=== PATIENT | female | born 1995 | race Caucasian/White ===

== ENCOUNTER 2019-09-12 12:31 | Inpatient (IN) | payer BC ==
[~2019-09-12 12:31] MED LIST: Lidocaine 1.5% with EPINEPHrine 1:200,000 5 ML Amp ONE
[2019-09-12] MEDS ORDERED: Sodium Chloride 0.9% 10 ML Syringe FLUSH PRN (12:57)
[2019-09-12] MEDS ORDERED: Ondansetron 4 MG/2 ML SDV IVPUSH PRN (12:57)
[2019-09-12] MEDS ORDERED: Oxytocin/Lactated Ringers 10 UNIT/1,000 ML BAG IV SCH (13:00)
--- NOTE | 2019-09-12 13:59 | PCM.LDHP ---
L&D History of Present Illness - General Date of Service: 09/12/19 Admit Problem/Dx: Patient Status Order with Admit Dx/Problem 09/12/19 12:41 Patient Status [ADT] Routine Admission Diagnosis/Problem Admission Diagnosis/Problem Source of Information: Patient History Limitations: Reports: No Limitations - History of Present Illness Introduction:: Patient is a 24 y/o at 40 3/7 wks who presents with SROM. Believes this occurred at about 0200 this AM. Contractions started around 0600 this AM. Rates contractions as an 8/10 currently. 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 (Approximate): - Infectious Disease History Infectious Disease History: Reports: Chicken Pox - Past Surgical History Musculoskeletal Surgical History: Reports: Shoulder Surgery (left) Social & Family History - Family History Family Medical History: Noncontributory - Tobacco Use Smoking Status *Q: Never Smoker Second Hand Smoke Exposure: No - Alcohol Use Alcohol Use History: No - Recreational Drug Use Recreational Drug Use: No H&P Review of Systems - Review of Systems: Review Of Systems: See Below General: Reports: No Symptoms Pulmonary: Reports: No Symptoms Cardiovascular: Reports: No Symptoms Gastrointestinal: Reports: Abdominal Pain (contractions ) Genitourinary: Reports: No Symptoms Musculoskeletal: Reports: No Symptoms Psychiatric: Reports: No Symptoms Neurological: Reports: No Symptoms L&D Exam - Exam Exam: See Below - Vital Signs Vital Signs: Last Vital Signs Temp 37.1 C 09/12/19 12:41 Pulse Resp 14 09/12/19 12:41 BP 133/78 09/12/19 12:41 Pulse Ox 100 09/12/19 12:41 Weight: 88.768 kg - OB Specific Contraction Intensity: Moderate Movement: Active Heart Tones: Present Heart Tones per Min: 150 Heart Rate (FHR) Variability: Moderate (6-25 bmp) Presentation: Vertex - Steven Score Steven Score Cervix Position: Midposition Steven Score Consistency: Soft Steven Score Effacement: >80% Steven Score Dilation: 3-4 cm Steven Score 's Station: -1 ,0 Steven Score Total: 10 - Exam General: Alert, Oriented, Cooperative Lungs: Clear to Auscultation, Normal Respiratory Effort Cardiovascular: Regular Rate, Regular Rhythm GI/Abdominal Exam: Soft, Non-Tender Genitourinary: Normal external exam Extremities: Normal Inspection Skin: Warm, Dry, Intact - Patient Data Lab Results Last 24 hrs: Laboratory Results - last 24 hr 09/12/19 09/12/19 Range/Units 12:45 13:36 WBC 12.39 H (3.98-10.04) K/mm3 RBC 4.25 (3.98-5.22) M/mm3 Hgb 11.7 (11.2-15.7) gm/dl Hct 35.6 (34.1-44.9) % MCV 83.8 (79.4-94.8) fl MCH 27.5 (25.6-32.2) pg MCHC 32.9 (32.2-35.5) g/dl RDW Std Deviation 39.5 (36.4-46.3) fL Plt Count 247 (182-369) K/mm3 MPV 10.9 (9.4-12.3) fl Neut % (Auto) 83.6 H (34.0-71.1) % Lymph % (Auto) 8.4 L (19.3-51.7) % [place] % (Auto) 7.1 (4.7-12.5) % Eos % (Auto) 0.2 L (0.7-5.8) Baso % (Auto) 0.2 (0.1-1.2) % Neut # (Auto) 10.36 H (1.56-6.13) K/mm3 Lymph # (Auto) 1.04 L (1.18-3.74) K/mm3 [place] # (Auto) 0.88 H (0.24-0.36) K/mm3 Eos # (Auto) 0.03 L (0.04-0.36) K/mm3 Baso # (Auto) 0.02 (0.01-0.08) K/mm3 Urine Opiates Screen Negative (PVKHUZ=873) Ur Buprenorphine Scrn Negative (CUTOFF=10) Ur Oxycodone Screen Negative (DMD1ZO=158) Urine Methadone Screen Negative (DFLEFA=367) Ur Propoxyphene Screen Negative (VQOCPX=633) Ur Barbiturates Screen Negative (KFVQOR=187) Ur Tricyclics Screen Negative (DOUCUR=668) Ur Phencyclidine Scrn Negative (CUTOFF=25) Ur Amphetamine Screen Negative (JBVTTG=769) U Methamphetamines Scrn Negative (VRMQAT=778) U Benzodiazepines Scrn Negative (KLBFTD=945) U Cocaine Metab Screen Negative (IJAXQO=804) U Marijuana (THC) Screen Negative (CUTOFF=50) Result Diagrams: 09/12/19 13:36 - Problem List (1) Late care SNOMED Code(s): 756706891, 682225894 ICD Code: O09.30 - SUPRVSN OF PREG W INSUFFICIENT ANTENAT CARE, UNSP TRIMESTER Status: Acute Current Visit: Yes (2) 40 weeks gestation of SNOMED Code(s): 98688460 ICD Code: Z3A.40 - 40 WEEKS GESTATION OF Status: Acute Current Visit: Yes (3) Rubella non-immune status, antepartum SNOMED Code(s): 035197720 ICD Code: O99.89 - OTH DISEASES AND CONDITIONS COMPL PREG/CHLDBRTH; Z28.3 - UNDERIMMUNIZATION STATUS Status: Acute Current Visit: Yes (4) Spontaneous rupture of amniotic membranes SNOMED Code(s): 947628177 ICD Code: EGE0496 - Status: Acute Current Visit: Yes Problem List Initiated/Reviewed/Updated: Yes Orders Last 24hrs: Active Orders 24 hr Category Date Time Status Patient Status [ADT] Routine ADT 09/12/19 12:41 Active Activity as Tolerated [RC] PFP Care 09/12/19 12:57 Active Communication Order [RC] ASDIRECTED Care 09/12/19 12:57 Active Heart Tones [RC] ASDIRECTED Care 09/12/19 12:57 Active Non Stress Test [RC] PER UNIT ROUTINE Care 09/12/19 12:41 Active Notify Provider [RC] PFP Care 09/12/19 12:57 Active Notify Provider [RC] PRN Care 09/12/19 12:57 Active Peripheral IV Care [RC] . DIRECTED Care 09/12/19 12:57 Active Vital Signs [RC] PER UNIT ROUTINE Care 09/12/19 12:41 Active Vital Signs [RC] PER UNIT ROUTINE Care 09/12/19 12:57 Active Regular Diet [DIET] Diet 09/12/19 Lunch Active Regular Diet [DIET] Diet 09/12/19 Lunch Active BLOOD BANK HOLD SPECIMEN [BBK] Stat Lab 09/12/19 12:57 Ordered RAPID PLASMA REAGIN,RPR [CHEM] Routine Lab 09/12/19 13:36 Received Lactated Ringers [Ringers, Lactated] 1,000 ml Med 09/12/19 13:00 Active IV ASDIRECTED Ondansetron [Zofran] Med 09/12/19 12:57 Active 4 mg IVPUSH Q4H PRN Oxytocin/Lactated Ringers [Pitocin in LR 10 Units/1,000 Med 09/12/19 13:00 Active ML] 10 unit in 1,000 ml IV .CONTINUOUS Sodium Chloride 0.9% [Saline Flush] Med 09/12/19 12:57 Active 10 ml FLUSH ASDIRECTED PRN Electronic Heart Tones Ext w TOCO [WOMSER] Oth 09/12/19 12:57 Ordered Routine Electronic Heart Tones Internal [WOMSER] Per Unit Oth 09/12/19 12:57 Ordered Routine Peripheral IV Insertion Adult [OM.PC] Routine Oth 09/12/19 12:57 Ordered Resuscitation Status Routine Resus Stat 09/12/19 12:41 Ordered Medication Orders Lactated Ringer's (Ringers, Lactated) 1,000 mls @ 100 mls/hr IV ASDIRECTED NIA Oxytocin/Lactated Ringer's (Pitocin In Lr 10 Units/1,000 Ml) 10 unit in 1,000 mls @ 100 mls/hr IV .CONTINUOUS NIA Ondansetron HCl (Zofran) 4 mg IVPUSH Q4H PRN PRN Reason: Nausea/Vomiting Sodium Chloride (Saline Flush) 10 ml FLUSH ASDIRECTED PRN PRN Reason: Keep Vein Open Assessment/Plan Comment:: * Labs done * GBS negative, no need for antibiotics * Allow patient to continue to labor on her own. Consider augmentation if needed * Pain management per patient preference * Anticipate
[2019-09-12] MEDS ORDERED: Bupivacaine/fentaNYL/NS 100 ML Bag EPIDUR PRN (18:11)
[2019-09-12] MEDS ORDERED: diphenhydrAMINE 50 MG/ML SDV IVPUSH PRN (18:11)
[2019-09-12] MEDS ORDERED: ePHEDrine 50 MG/ML SDV IVPUSH PRN (18:11)
[2019-09-12] MEDS ORDERED: fentaNYL 100 MCG/2 ML SDV EPIDUR PRN (18:11)
--- NOTE | 2019-09-12 19:01 | PCM.PNLD ---
Labor Progress Note - VS & Meds Vital Signs: Last Vital Signs Temp 37.1 C 09/12/19 12:41 Pulse Resp 14 09/12/19 12:41 BP 133/78 09/12/19 12:41 Pulse Ox 100 09/12/19 12:41 Active Medications: Current Medications Diphenhydramine HCl (Benadryl) 25 mg IVPUSH Q6H PRN PRN Reason: pruritis Ephedrine Sulfate (Ephedrine Sulfate) 5 mg IVPUSH ASDIRECTED PRN PRN Reason: Hypotension Fentanyl (Sublimaze) 100 mcg EPIDUR Q3H PRN PRN Reason: Pain Fentanyl/Bupivacaine HCl (Fentanyl/Bupivacaine/Ns 2 Mcg-0.125% 100 Ml) 100 ml EPIDUR ASDIRECTED PRN PRN Reason: Pain Lactated Ringer's (Ringers, Lactated) 1,000 mls @ 100 mls/hr IV ASDIRECTED NIA Oxytocin/Lactated Ringer's (Pitocin In Lr 10 Units/1,000 Ml) 10 unit in 1,000 mls @ 100 mls/hr IV .CONTINUOUS NIA Ondansetron HCl (Zofran) 4 mg IVPUSH Q4H PRN PRN Reason: Nausea/Vomiting Sodium Chloride (Saline Flush) 10 ml FLUSH ASDIRECTED PRN PRN Reason: Keep Vein Open - Uterine Contractions Uterine Monitoring Mode: External [place] Contraction Intensity: Moderate to Strong - Monitoring Monitor Mode: External Ultrasound Heart Rate (FHR) Baseline: 145 Heart Rate (FHR) Variability: Moderate (6-25 bmp) Accelerations: Present, 15x15 Decelerations: None Strip Review: Category I - Vaginal Exam Dilation (cm): 5 Effacement (Percent): 75 Station: -1 Cervical Position: Midposition - Labor Progress (Free Text) Labor Progress: Doing well. Very uncomfortable with contractions. No signs of fever. Making change. Continue plan.
[2019-09-12] MEDS: Lactated Ringers 1,000 ML IV SCH ×2 (21:55→23:11)
--- NOTE | 2019-09-12 22:28 | PCM.PREANE ---
Preanesthetic Assessment - Anesthesia/Transfusion/Family Hx Anesthesia History: Prior Anesthesia Without Reaction Transfusion History: No Prior Transfusion(s) - Review of Systems General: No Symptoms Pulmonary: No Symptoms Cardiovascular: No Symptoms Gastrointestinal: No Symptoms Neurological: No Symptoms Other: Reports: None - Physical Assessment Vital Signs: Last Vital Signs Temp 98.7 F 09/12/19 12:41 Pulse Resp 14 09/12/19 12:41 BP 133/78 09/12/19 12:41 Pulse Ox 100 09/12/19 12:41 Height: 1.68 m Weight: 88.768 kg ASA Class: 2 Mental Status: Alert & Oriented x3 Airway Class: Mallampati = 2 Dentition: Reports: Normal Dentition Thyro-Mental Finger Breadths: 3 Mouth Opening Finger Breadths: 3 ROM/Head Extension: Full Lungs: Clear to Auscultation, Normal Respiratory Effort Cardiovascular: Regular Rate, Regular Rhythm - Lab Values: Laboratory Last Values WBC 12.39 K/mm3 (3.98-10.04) H 09/12/19 13:36 RBC 4.25 M/mm3 (3.98-5.22) 09/12/19 13:36 Hgb 11.7 gm/dl (11.2-15.7) 09/12/19 13:36 Hct 35.6 % (34.1-44.9) 09/12/19 13:36 MCV 83.8 fl (79.4-94.8) 09/12/19 13:36 MCH 27.5 pg (25.6-32.2) 09/12/19 13:36 MCHC 32.9 g/dl (32.2-35.5) 09/12/19 13:36 RDW Std Deviation 39.5 fL (36.4-46.3) 09/12/19 13:36 Plt Count 247 K/mm3 (182-369) 09/12/19 13:36 MPV 10.9 fl (9.4-12.3) 09/12/19 13:36 Neut % (Auto) 83.6 % (34.0-71.1) H 09/12/19 13:36 Lymph % (Auto) 8.4 % (19.3-51.7) L 09/12/19 13:36 [place] % (Auto) 7.1 % (4.7-12.5) 09/12/19 13:36 Eos % (Auto) 0.2 (0.7-5.8) L 09/12/19 13:36 Baso % (Auto) 0.2 % (0.1-1.2) 09/12/19 13:36 Neut # (Auto) 10.36 K/mm3 (1.56-6.13) H 09/12/19 13:36 Lymph # (Auto) 1.04 K/mm3 (1.18-3.74) L 09/12/19 13:36 [place] # (Auto) 0.88 K/mm3 (0.24-0.36) H 09/12/19 13:36 Eos # (Auto) 0.03 K/mm3 (0.04-0.36) L 09/12/19 13:36 Baso # (Auto) 0.02 K/mm3 (0.01-0.08) 09/12/19 13:36 Urine Opiates Screen Negative (QLUNPG=198) 09/12/19 12:45 Ur Buprenorphine Scrn Negative (CUTOFF=10) 09/12/19 12:45 Ur Oxycodone Screen Negative (COX6CN=212) 09/12/19 12:45 Urine Methadone Screen Negative (UJFHZR=728) 09/12/19 12:45 Ur Propoxyphene Screen Negative (ZMUMBW=168) 09/12/19 12:45 Ur Barbiturates Screen Negative (QFRYCG=120) 09/12/19 12:45 Ur Tricyclics Screen Negative (FPYVPI=971) 09/12/19 12:45 Ur Phencyclidine Scrn Negative (CUTOFF=25) 09/12/19 12:45 Ur Amphetamine Screen Negative (WJDLBV=144) 09/12/19 12:45 U Methamphetamines Scrn Negative (ZOVMCO=530) 09/12/19 12:45 U Benzodiazepines Scrn Negative (GWTCOH=406) 09/12/19 12:45 U Cocaine Metab Screen Negative (QIMJWA=005) 09/12/19 12:45 U Marijuana (THC) Screen Negative (CUTOFF=50) 09/12/19 12:45 - Allergies Allergies/Adverse Reactions: Allergies Allergy/AdvReac Type Severity Reaction Status Date / Time morphine Allergy Nausea Verified 09/12/19 12:41 - Acknowledgements Anesthesia Type Planned: Epidural Pt an Appropriate Candidate for the Planned Anesthesia: Yes Alternatives and Risks of Anesthesia Discussed w Pt/Guardian: Yes Pt/Guardian Understands and Agrees with Anesthesia Plan: Yes PreAnesthesia Questionnaire - Past Health History Medical/Surgical History: Denies 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: - Infectious Disease History Infectious Disease History: Reports: Chicken Pox - Past Surgical History Musculoskeletal Surgical History: Reports: Shoulder Surgery (left) - SUBSTANCE USE Smoking Status *Q: Never Smoker Second Hand Smoke Exposure: No Recreational Drug Use History: No - HOME MEDS Home Medications: Home Meds [id number]/Iron Fumarate/FA/DSS [ 19 Tablet] 1 each PO DAILY 09/12/19 [ History] - CURRENT (IN HOUSE) MEDS Current Meds: Current Medications Diphenhydramine HCl (Benadryl) 25 mg IVPUSH Q6H PRN PRN Reason: pruritis Ephedrine Sulfate (Ephedrine Sulfate) 5 mg IVPUSH ASDIRECTED PRN PRN Reason: Hypotension Fentanyl (Sublimaze) 100 mcg EPIDUR Q3H PRN PRN Reason: Pain Fentanyl/Bupivacaine HCl (Fentanyl/Bupivacaine/Ns 2 Mcg-0.125% 100 Ml) 100 ml EPIDUR ASDIRECTED PRN PRN Reason: Pain Lactated Ringer's (Ringers, Lactated) 1,000 mls @ 100 mls/hr IV ASDIRECTED NIA Last Admin: 09/12/19 21:55 Dose: 999 mls/hr Oxytocin/Lactated Ringer's (Pitocin In Lr 10 Units/1,000 Ml) 10 unit in 1,000 mls @ 100 mls/hr IV .CONTINUOUS [facility] Ondansetron HCl (Zofran) 4 mg IVPUSH Q4H PRN PRN Reason: Nausea/Vomiting Sodium Chloride (Saline Flush) 10 ml FLUSH ASDIRECTED PRN PRN Reason: Keep Vein Open
[2019-09-13] MEDS: Lactated Ringers 1,000 ML IV SCH (00:15)
[2019-09-13] MEDS ORDERED: Lidocaine 1% 50 ML MDV ONE (02:25)
--- NOTE | 2019-09-13 02:39 | PCM.DEL ---
L & D Note - General Info Date of Service: 09/13/19 - Delivery Note Labor: Spontaneous Delivery Outcome: Livebirth Delivery Method: Spontaneous Vaginal Delivery-Single Delivery Mode: Spontaneous Presentation: Right Occiput Anterior (MARISOL) Nuchal Cord: Present, Reduced Anesthesia Type: Epidural Amniotic Fluid Description: Clear Episiotomy Type: Midline Suture type: Vicryl Suture size: 2-0 Placenta: Intact, Spontaneous Cord: 3 Vessels Estimated Blood Loss: 300 Resuscitation Needed: Yes [place]: Bulb Syringe, Stimulated, Warmed, Bend Used, Warmer Used Delivery Comments (Free Text/Narrative):: Patient found to be complete and began pushing. With maternal pushing effort head brought to . FHR deceleration into the 60's noted at this time. Small midline episiotomy made and with next contraction head delivered from an MARISOL presentation. Nuchal present and reduced. With gentle downward traction shoulders and body delivered. placed on maternal abdomen. Cord clamped and cut. Cord blood obtained. Placenta allowed time to separate and expelled intact. Inspection of perineum showed midline episiotomy without extension. This was repaired with a 2-0 vicryl in the typical fashion - General Info Date of Service: 09/13/19 - Patient Data Vitals - Most Recent: Last Vital Signs Temp 37.1 C 09/12/19 12:41 Pulse Resp 14 09/12/19 12:41 BP 133/78 09/12/19 12:41 Pulse Ox 100 09/12/19 12:41 Weight - Most Recent: 88.768 kg - Problem List & Annotations (1) Late care SNOMED Code(s): 024912815, 247594715 Code(s): O09.30 - SUPRVSN OF PREG W INSUFFICIENT ANTENAT CARE, UNSP TRIMESTER Status: Acute Current Visit: Yes (2) 40 weeks gestation of SNOMED Code(s): 00190029 Code(s): Z3A.40 - 40 WEEKS GESTATION OF Status: Acute Current Visit: Yes (3) Rubella non-immune status, antepartum SNOMED Code(s): 939774079 Code(s): O99.89 - OTH DISEASES AND CONDITIONS COMPL PREG/CHLDBRTH; Z28.3 - UNDERIMMUNIZATION STATUS Status: Acute Current Visit: Yes (4) Spontaneous rupture of amniotic membranes SNOMED Code(s): 826188261 Code(s): HVU7825 - Status: Acute Current Visit: Yes (5) Vaginal delivery SNOMED Code(s): 207153195 Code(s): O80 - ENCOUNTER FOR FULL-TERM UNCOMPLICATED DELIVERY Status: Acute Current Visit: Yes - Problem List Review Problem List Initiated/Reviewed/Updated: Yes - My Orders Last 24 Hours: My Active Orders 09/12/19 12:41 Vital Signs [RC] PER UNIT ROUTINE Resuscitation Status Routine 09/12/19 12:57 Activity as Tolerated [RC] PFP Communication Order [RC] ASDIRECTED Notify Provider [RC] PFP Notify Provider [RC] PRN Peripheral IV Care [RC] Q2HR Vital Signs [RC] 09,15,, BLOOD BANK HOLD SPECIMEN [BBK] Stat Ondansetron [Zofran] 4 mg IVPUSH Q4H PRN Sodium Chloride 0.9% [Saline Flush] 10 ml FLUSH ASDIRECTED PRN Electronic Heart Tones Ext w TOCO [WOMSER] Routine Electronic Heart Tones Internal [WOMSER] Per Unit Routine Peripheral IV Insertion Adult [OM.PC] Routine 09/12/19 13:00 Lactated Ringers [Ringers, Lactated] 1,000 ml IV ASDIRECTED Oxytocin/Lactated Ringers [Pitocin in LR 10 Units/1,000 ML] 10 unit in 1,000 ml IV .CONTINUOUS 09/12/19 13:36 RAPID PLASMA REAGIN,RPR [CHEM] Routine 09/12/19 15:28 Patient Status [ADT] Routine 09/12/19 Lunch Regular Diet [DIET] Regular Diet [DIET] - Assessment Assessment:: PPD#0 - Plan Plan:: * Routine cares * Breast feeding * Discharge home in 1-2 days
[2019-09-13] MEDS ORDERED: Benzocaine/Menthol 20%-0.5% Spray 56 GM Canister TOP PRN (03:10)
[2019-09-13] MEDS ORDERED: Witch Hazel Medicated Pads 40/Jar TOP PRN (03:10)
[2019-09-13] MEDS ORDERED: Ibuprofen 600 MG Tab PO PRN (03:10)
[2019-09-13] MEDS ORDERED: Acetaminophen 325 MG Tab PO PRN (03:10)
[2019-09-13] MEDS: Docusate Sodium 100 MG Cap PO PRN (04:56)
--- NOTE | 2019-09-13 07:54 | PCM48HPAN ---
Post Anesthesia Note - EVALUATION WITHIN 48HRS OF ANESTHETIC Vital Signs in Normal Range: Yes Patient Participated in Evaluation: Yes Respiratory Function Stable: Yes Airway Patent: Yes Cardiovascular Function Stable: Yes Hydration Status Stable: Yes Pain Control Satisfactory: Yes Nausea and Vomiting Control Satisfactory: Yes Mental Status Recovered: Yes Vital Signs: Last Vital Signs Temp 98.7 F 09/12/19 12:41 Pulse Resp 14 09/12/19 12:41 BP 133/78 09/12/19 12:41 Pulse Ox 100 09/12/19 12:41
[2019-09-14] MEDS: Docusate Sodium 100 MG Cap PO PRN (05:17)
--- NOTE | 2019-09-14 06:48 | PCM.PNPP ---
- General Info Date of Service: 09/14/19 Functional Status: Reports: Pain Controlled, Tolerating Diet, Ambulating, Urinating - Review of Systems General: Reports: No Symptoms Pulmonary: Reports: No Symptoms Cardiovascular: Reports: No Symptoms Gastrointestinal: Reports: No Symptoms Genitourinary: Reports: No Symptoms Musculoskeletal: Reports: No Symptoms Neurological: Reports: No Symptoms - Patient Data Vital Signs - Most Recent: Last Vital Signs Temp 36.4 C 09/13/19 20:12 Pulse 85 09/14/19 05:22 Resp 15 09/14/19 05:22 BP 116/82 09/14/19 05:22 Pulse Ox 99 09/14/19 05:22 Weight - Most Recent: 88.768 kg I&O - Last 24 Hours: Intake & Output 09/13/19 09/13/19 09/14/19 14:59 22:59 06:59 Intake Total 120 Balance 120 Lab Results - Last 24 Hours: Laboratory Results - last 24 hr 09/12/19 Range/Units 13:36 RPR Non-reactive (NONREACTIVE) Med Orders - Current: Current Medications Acetaminophen (Tylenol) 650 mg PO Q4H PRN PRN Reason: mild pain or fever Benzocaine/Menthol (Dermoplast Pain Relief [place]) 0 gm TOP ASDIRECTED PRN PRN Reason: Perineal Comfort Measure Last Admin: 09/13/19 04:58 Dose: 1 canister Docusate Sodium (Colace) 100 mg PO BID PRN PRN Reason: Constipation Last Admin: 09/14/19 05:17 Dose: 100 mg Ibuprofen (Motrin) 600 mg PO Q4H PRN PRN Reason: Mild pain or fever Last Admin: 09/13/19 04:57 Dose: 600 mg Witch Raisa (Tucks) 1 pad TOP ASDIRECTED PRN PRN Reason: Perineal Comfort Measure Last Admin: 09/13/19 04:59 Dose: 1 tub Discontinued Medications Diphenhydramine HCl (Benadryl) 25 mg IVPUSH Q6H PRN PRN Reason: pruritis Ephedrine Sulfate (Ephedrine Sulfate) 5 mg IVPUSH ASDIRECTED PRN PRN Reason: Hypotension Fentanyl (Sublimaze) 100 mcg EPIDUR Q3H PRN PRN Reason: Pain Last Admin: 09/12/19 23:00 Dose: 100 mcg Fentanyl/Bupivacaine HCl (Fentanyl/Bupivacaine/Ns 2 Mcg-0.125% 100 Ml) 100 ml EPIDUR ASDIRECTED PRN PRN Reason: Pain Last Admin: 09/12/19 22:56 Dose: 100 ml Lactated Ringer's (Ringers, Lactated) 1,000 mls @ 100 mls/hr IV ASDIRECTED NIA Last Admin: 09/13/19 00:15 Dose: 100 mls/hr Oxytocin/Lactated Ringer's (Pitocin In Lr 10 Units/1,000 Ml) 10 unit in 1,000 mls @ 100 mls/hr IV .CONTINUOUS NIA Last Admin: 09/13/19 02:21 Dose: 500 mls/hr Lidocaine HCl (Xylocaine 1%) Confirm Administered Dose 50 ml .ROUTE .STK-MED ONE Stop: 09/13/19 02:26 Lidocaine/Epinephrine (Xylocaine-Mpf 1.5% W/Epinephrine 1:200,000) 5 ml .ROUTE .STK-MED ONE Stop: 09/12/19 00:01 Ondansetron HCl (Zofran) 4 mg IVPUSH Q4H PRN PRN Reason: Nausea/Vomiting Sodium Chloride (Saline Flush) 10 ml FLUSH ASDIRECTED PRN PRN Reason: Keep Vein Open - Interaction Infant Disposition, : in Room with Family Infant Interaction: Holding Infant Feeding: Attempted ; Nursed Fair/Poor Support Person: - Recovery Exam Fundal Tone: Firm Fundal Level: At Umbilicus Fundal Placement: Midline Lochia Amount: Small Lochia Color: Rubra/Red Perineum Description: Other (see below) Other Perinuem Description: no change Episiotomy/Laceration: Approximated Bladder Status: Voiding Urinary Elimination: Voided - Exam General: Alert, Oriented, Cooperative GI/Abdominal Exam: Soft, Non-Tender Extremities: Normal Inspection Skin: Warm, Dry, Intact - Problem List & Annotations (1) Late care SNOMED Code(s): 351516033, 338379557 Code(s): O09.30 - SUPRVSN OF PREG W INSUFFICIENT ANTENAT CARE, UNSP TRIMESTER Status: Acute Current Visit: Yes (2) 40 weeks gestation of SNOMED Code(s): 57554574 Code(s): Z3A.40 - 40 WEEKS GESTATION OF Status: Acute Current Visit: Yes (3) Rubella non-immune status, antepartum SNOMED Code(s): 784987508 Code(s): O99.89 - OTH DISEASES AND CONDITIONS COMPL PREG/CHLDBRTH; Z28.3 - UNDERIMMUNIZATION STATUS Status: Acute Current Visit: Yes (4) Spontaneous rupture of amniotic membranes SNOMED Code(s): 049650663 Code(s): DGF0556 - Status: Acute Current Visit: Yes (5) Vaginal delivery SNOMED Code(s): 247149497 Code(s): O80 - ENCOUNTER FOR FULL-TERM UNCOMPLICATED DELIVERY Status: Acute Current Visit: Yes - Problem List Review Problem List Initiated/Reviewed/Updated: Yes - My Orders Last 24 Hours: My Active Orders 09/13/19 Breakfast Regular Diet [DIET] 09/14/19 03:10 Heat Therapy [OM.PC] PRN - Assessment Assessment:: PPD#1 - Plan Plan:: * Routine cares * Breast feeding * Discharge home today vs tomorrow pending on course
[2019-09-14] MEDS ORDERED: Measles, Mumps & Rubella Vaccine 0.5 ML SDV SUBCUT ONE (10:34)
--- NOTE | 2019-09-14 11:28 | PCM.DCSUM1 ---
Discharge Summary - Discharge Data Discharge Date: 09/14/19 Discharge Disposition: Home, Self-Care 01 Condition: Good - Referral to Home Health Primary Care Physician: Cristiane Deshpande MD - Discharge Diagnosis/Problem(s) (1) Late care SNOMED Code(s): 933398693, 550228631 ICD Code: O09.30 - SUPRVSN OF PREG W INSUFFICIENT ANTENAT CARE, UNSP TRIMESTER Status: Acute (2) 40 weeks gestation of SNOMED Code(s): 95159423 ICD Code: Z3A.40 - 40 WEEKS GESTATION OF Status: Acute (3) Rubella non-immune status, antepartum SNOMED Code(s): 517575425 ICD Code: O99.89 - OTH DISEASES AND CONDITIONS COMPL PREG/CHLDBRTH; Z28.3 - UNDERIMMUNIZATION STATUS Status: Acute (4) Spontaneous rupture of amniotic membranes SNOMED Code(s): 270304425 ICD Code: [id number] - Status: Acute (5) Vaginal delivery SNOMED Code(s): 843961251 ICD Code: O80 - ENCOUNTER FOR FULL-TERM UNCOMPLICATED DELIVERY Status: Acute - Patient Summary/Data Complications: None Consults: None Recommended Follow-up Testing/Procedures: Follow up in 3 weeks for check Hospital Course: 24 y/o at 40 3/7 wks presented with SROM/labor. Progressed well to complete dilation without need for augmentation and underwent an uncomplicated . See delivery note. she did well and was discharged home on PPD #1 - Patient Instructions Diet: Regular Diet as Tolerated Activity: As Tolerated Activity, Other: Pelvic rest for 6 weeks Driving: May Drive Today Showering/Bathing: May Shower Showering/Bathing, Other: May Bathe Notify Provider of: Fever, Increased Pain, Swelling and Redness, Drainage, Nausea and/or Vomiting - Discharge Plan *PRESCRIPTION DRUG MONITORING PROGRAM REVIEWED*: No *COPY OF PRESCRIPTION DRUG MONITORING REPORT IN PATIENT [place]: No Home Medications: Home Meds [id number]/Iron Fumarate/FA/DSS [ 19 Tablet] 1 each PO DAILY 09/12/19 [ History] Docusate Sodium [Colace] 100 mg PO BID PRN cap 09/13/19 [Rx] Ibuprofen [Motrin] 600 mg PO Q4H PRN tablet 09/13/19 [Rx] Patient Handouts: Care After Vaginal Delivery Referrals: Cristiane Deshpande MD [Primary Care Provider] - (3 weeks for check) - Discharge Summary/Plan Comment DC Time >30 min.: No - Patient Data Vitals - Most Recent: Last Vital Signs Temp 36.3 C 09/14/19 08:16 Pulse 81 09/14/19 08:16 Resp 15 09/14/19 05:22 BP 126/75 09/14/19 08:16 Pulse Ox 99 09/14/19 08:16 Weight - Most Recent: 88.768 kg Lab Results - Last 24 hrs: Laboratory Results - last 24 hr 09/12/19 Range/Units 13:36 RPR Non-reactive (NONREACTIVE) Med Orders - Current: Current Medications Acetaminophen (Tylenol) 650 mg PO Q4H PRN PRN Reason: mild pain or fever Benzocaine/Menthol (Dermoplast Pain Relief [place]) 0 gm TOP ASDIRECTED PRN PRN Reason: Perineal Comfort Measure Last Admin: 09/13/19 04:58 Dose: 1 canister Docusate Sodium (Colace) 100 mg PO BID PRN PRN Reason: Constipation Last Admin: 09/14/19 05:17 Dose: 100 mg Ibuprofen (Motrin) 600 mg PO Q4H PRN PRN Reason: Mild pain or fever Last Admin: 09/13/19 04:57 Dose: 600 mg Witch Raisa (Tucks) 1 pad TOP ASDIRECTED PRN PRN Reason: Perineal Comfort Measure Last Admin: 09/13/19 04:59 Dose: 1 tub Discontinued Medications Diphenhydramine HCl (Benadryl) 25 mg IVPUSH Q6H PRN PRN Reason: pruritis Ephedrine Sulfate (Ephedrine Sulfate) 5 mg IVPUSH ASDIRECTED PRN PRN Reason: Hypotension Fentanyl (Sublimaze) 100 mcg EPIDUR Q3H PRN PRN Reason: Pain Last Admin: 09/12/19 23:00 Dose: 100 mcg Fentanyl/Bupivacaine HCl (Fentanyl/Bupivacaine/Ns 2 Mcg-0.125% 100 Ml) 100 ml EPIDUR ASDIRECTED PRN PRN Reason: Pain Last Admin: 09/12/19 22:56 Dose: 100 ml Lactated Ringer's (Ringers, Lactated) 1,000 mls @ 100 mls/hr IV ASDIRECTED NIA Last Admin: 09/13/19 00:15 Dose: 100 mls/hr Oxytocin/Lactated Ringer's (Pitocin In Lr 10 Units/1,000 Ml) 10 unit in 1,000 mls @ 100 mls/hr IV .CONTINUOUS NIA Last Admin: 09/13/19 02:21 Dose: 500 mls/hr Lidocaine HCl (Xylocaine 1%) Confirm Administered Dose 50 ml .ROUTE .STK-MED ONE Stop: 09/13/19 02:26 Lidocaine/Epinephrine (Xylocaine-Mpf 1.5% W/Epinephrine 1:200,000) 5 ml .ROUTE .STK-MED ONE Stop: 09/12/19 00:01 Measles/Mumps/Rubella Vaccine Live (M-M-R Ii Vaccine) 0.5 ml SUBCUT .ONCE ONE Stop: 09/14/19 10:35 Last Admin: 09/14/19 10:53 Dose: 0.5 ml Ondansetron HCl (Zofran) 4 mg IVPUSH Q4H PRN PRN Reason: Nausea/Vomiting Sodium Chloride (Saline Flush) 10 ml FLUSH ASDIRECTED PRN PRN Reason: Keep Vein Open
[2019-09-14 16:37] VITALS: BP 96/71; PULSE 79
== END 2019-09-14 19:35 | disposition home or self-care (01) | DRG 560 ==
LOC: JD.OB 12:31 → JD.OBCHECK 12:31 → JD.OB 15:28 → OBSVTOIN 09-13 02:20 → JD.OB 09-13 02:21
PROVIDERS: ADMIT Obstetrics & Gynecology; ATTEND Obstetrics & Gynecology
PROC: 10E0XZZ Delivery of Products of Conception, External Approach (ICD-10-PCS; principal; 2019-09-13)
PROC: 0W8NXZZ Division of Female Perineum, External Approach (ICD-10-PCS; 2019-09-13)
PROC: 3E0R3BZ Introduction of Anesthetic Agent into Spinal Canal, Percutaneous Approach (ICD-10-PCS; 2019-09-13)
PROC: 3E0234Z Introduction of Serum, Toxoid and Vaccine into Muscle, Percutaneous Approach (ICD-10-PCS; 2019-09-14)
DX: O48.0 Post-term pregnancy (principal); O76 Abnormality in fetal heart rate and rhythm complicating labor and delivery; O69.81X0 Labor and delivery complicated by cord around neck, without compression, not applicable or unspecified; Z3A.40 40 weeks gestation of pregnancy; Z37.0 Single live birth; Z88.5 Allergy status to narcotic agent; Z23 Encounter for immunization
CPT/HCPCS: 36415; 51701; 51702; 59025; 59409; 80306; 85025; 86592; 90471; 90707; A9270-GY; J2590; J3010; J7120

== ENCOUNTER 2020-09-07 06:55 | Inpatient (IN) | payer BC ==
[2020-09-07] MEDS ORDERED: Sodium Chloride 0.9% 10 ML Syringe FLUSH PRN (07:08)
[2020-09-07] MEDS ORDERED: Nalbuphine 10 MG/1 ML Vial IVPUSH PRN (07:08)
[2020-09-07] MEDS ORDERED: Ondansetron 4 MG/2 ML SDV IVPUSH PRN (07:08)
[2020-09-07] MEDS ORDERED: Oxytocin/Lactated Ringers 10 UNIT/1,000 ML BAG IV SCH (07:15)
[2020-09-07] MEDS ORDERED: Lactated Ringers 1,000 ML IV SCH (07:15)
--- NOTE | 2020-09-07 07:18 | PCM.LDHP ---
L&D History of Present Illness - General Date of Service: 09/07/20 Admit Problem/Dx: Patient Status Order with Admit Dx/Problem 09/07/20 07:09 Patient Status [ADT] Routine Admission Diagnosis/Problem Admission Diagnosis/Problem Normal in third trimester Source of Information: Patient History Limitations: Reports: No Limitations - History of Present Illness Introduction:: Patient is a 25 y/o at 42 0/7 wks who presents for IOL. Doing well today. No concerns - Related Data Allergies/Adverse Reactions: Allergies Allergy/AdvReac Type Severity Reaction Status Date / Time morphine AdvReac Nausea Verified 09/07/20 17:14 Home Medications: Home Meds Prenat 115/Iron Fum/Folic/Dss [ 19 Tablet] 1 each PO DAILY 09/12/19 [History] Ascorbic Acid [Vitamin C] 1,000 mg PO DAILY 09/07/20 [History] Calcium Carbonate/Vitamin D3 [Calcium Carbonate/Vitamin D 600 MG-200 Unit] 1 tab PO DAILY 09/07/20 [History] Multivitamin with Minerals [Multiple Vitamin] 1 tab PO DAILY 09/07/20 [History] Past Medical History [employer] History: Reports: : 2 Para: 1 LMP (Approximate): - Infectious Disease History Infectious Disease History: Reports: Chicken Pox - Past Surgical History Musculoskeletal Surgical History: Reports: Shoulder Surgery (left) Social & Family History - Family History Family Medical History: No Pertinent Family History - Tobacco Use Tobacco Use Status *Q: Never Tobacco User - Alcohol Use Alcohol Use History: No - Recreational Drug Use Recreational Drug Use: No H&P Review of Systems - Review of Systems: Review Of Systems: See Below General: Reports: No Symptoms Pulmonary: Reports: No Symptoms Cardiovascular: Reports: No Symptoms Genitourinary: Reports: No Symptoms Musculoskeletal: Reports: No Symptoms Psychiatric: Reports: No Symptoms L&D Exam - Exam Exam: See Below - OB Specific Contraction Intensity: Mild Movement: Active Heart Tones: Present Heart Tones per Min: 140 Heart Rate (FHR) Variability: Moderate (6-25 bmp) Presentation: Vertex - Steven Score Steven Score Cervix Position: Midposition Steven Score Consistency: Soft Steven Score Effacement: 51-70% Steven Score Dilation: 3-4 cm Steven Score 's Station: -2 Steven Score Total: 8 - Exam General: Alert, Oriented, Cooperative Lungs: Clear to Auscultation, Normal Respiratory Effort Cardiovascular: Regular Rate, Regular Rhythm GI/Abdominal Exam: Soft, Non-Tender Genitourinary: Normal external exam Back Exam: Normal Inspection - Patient Data Result Diagrams: 09/07/20 07:23 - Problem List (1) 42 weeks gestation of SNOMED Code(s): 95382978 ICD Code: Z3A.42 - 42 WEEKS GESTATION OF Status: Acute Current Visit: Yes Problem List Initiated/Reviewed/Updated: Yes Orders Last 24hrs: Active Orders 24 hr Category Date Time Status Patient Status [ADT] Routine ADT 09/07/20 07:09 Ordered Activity as Tolerated [RC] PFP Care 09/07/20 07:09 Ordered Communication Order [RC] ASDIRECTED Care 09/07/20 07:09 Ordered Heart Tones [RC] ASDIRECTED Care 09/07/20 07:09 Ordered Non Stress Test [RC] PER UNIT ROUTINE Care 09/07/20 07:09 Ordered Notify Provider [RC] PFP Care 09/07/20 07:09 Ordered Notify Provider [RC] PRN Care 09/07/20 07:09 Ordered Peripheral IV Care [RC] . DIRECTED Care 09/07/20 07:09 Ordered Vital Signs [RC] PER UNIT ROUTINE Care 09/07/20 07:09 Ordered Regular Diet [DIET] Diet 09/07/20 Breakfast Ordered CBC W/O DIFF,HEMOGRAM [HEME] Routine Lab 09/07/20 07:08 Ordered CORONAVIRUS COVID-19 EMILIA [MOLEC] Stat Lab 09/07/20 07:10 Ordered RAPID PLASMA REAGIN,RPR [CHEM] Routine Lab 09/07/20 07:09 Ordered TYPE AND SCREEN [BBK] Routine Lab 09/07/20 07:08 Ordered Lactated Ringers [Ringers, Lactated] 1,000 ml Med 09/07/20 07:15 Ordered IV ASDIRECTED Nalbuphine [Nubain] Med 09/07/20 07:08 Ordered 10 mg IVPUSH Q2H PRN Ondansetron [Zofran] Med 09/07/20 07:08 Ordered 4 mg IVPUSH Q4H PRN Oxytocin/Lactated Ringers [Pitocin in LR 10 Units/1,000 Med 09/07/20 07:15 Ordered ML] 10 unit in 1,000 ml IV .CONTINUOUS Sodium Chloride 0.9% [Saline Flush] Med 09/07/20 07:08 Ordered 10 ml FLUSH ASDIRECTED PRN Electronic Heart Tones Ext w TOCO [WOMSER] Oth 09/07/20 07:09 Ordered Routine Electronic Heart Tones Internal [WOMSER] Per Unit Ot 09/07/20 07:09 Ordered Routine Peripheral IV Insertion Adult [OM.PC] Routine Ot 09/07/20 07:09 Ordered Resuscitation Status Routine Resus Stat 09/07/20 07:08 Ordered Medication Orders Oxytocin/Lactated Ringer's (Pitocin In Lr 10 Units/1,000 Ml) 10 unit in 1,000 mls @ 500 mls/hr IV .CONTINUOUS NIA Lactated Ringer's (Ringers, Lactated) 1,000 mls @ 100 mls/hr IV ASDIRECTED NIA Nalbuphine HCl (Nalbuphine 10 Mg/1 Ml Vial) 10 mg IVPUSH Q2H PRN PRN Reason: Pain Ondansetron HCl (Ondansetron 4 Mg/2 Ml Sdv) 4 mg IVPUSH Q4H PRN PRN Reason: Nausea/Vomiting Sodium Chloride (Sodium Chloride 0.9% 10 Ml Syringe) 10 ml FLUSH ASDIRECTED PRN PRN Reason: Keep Vein Open Assessment/Plan Comment:: * Labs to be done * GBS negative * AROM done for IOL * Pain management per patient preference * Anticipate
--- NOTE | 2020-09-07 16:57 | PCM.DEL ---
L & D Note - General Info Date of Service: 09/07/20 - Delivery Note Labor: Induced by ARM Delivery Outcome: Livebirth Infant Delivery Method: Spontaneous Vaginal Delivery-Single Infant Delivery Mode: Spontaneous Presentation: Right Occiput Anterior (MARISOL) Nuchal Cord: Present (tight, not reduced) Anesthesia Type: None Amniotic Fluid Description: Meconium Stained Episiotomy Type: None Laceration: 1st Degree Placenta: Intact, Spontaneous Cord: 3 Vessels Estimated Blood Loss: 100 Resuscitation Needed: Yes [place]: Suctioned, Bulb Syringe, Stimulated, Warmed, Surfside Used, Warmer Used Delivery Comments (Free Text/Narrative):: Patient complete and pushing in hands/knees position. Had long time and noted heart rate deceleration. Asked to turn to lithotomy and did so. With pushing effort head delivered from MARISOL presentation. Tight nuchal cord present. Not reduced. With gentle downward traction shoulders and body delivered. Cord clamped and cut and infant taken to warmer for assessment. Cord segment obtained for cord gas. Cord blood obtained. Placenta allowed time to separate and expelled intact. Inspection of perineum showed small abrasion like area. Patient preferred to not repair which was felt appropriate - General Info Date of Service: 09/07/20 - Patient Data Vitals - Most Recent: Last Vital Signs Temp 36.7 C 09/07/20 07:31 Pulse 97 09/07/20 07:31 Resp 20 09/07/20 07:31 BP 135/86 09/07/20 07:31 Pulse Ox 100 09/07/20 07:31 Weight - Most Recent: 94.347 kg - Problem List & Annotations (1) 42 weeks gestation of SNOMED Code(s): 16624163 Code(s): Z3A.42 - 42 WEEKS GESTATION OF Status: Acute Current Visit: Yes (2) Vaginal delivery SNOMED Code(s): 544709396 Code(s): O80 - ENCOUNTER FOR FULL-TERM UNCOMPLICATED DELIVERY Status: Acute Current Visit: No (3) COVID-19 affecting in third trimester SNOMED Code(s): 170602768, 668466709 Code(s): O98.513 - OTHER VIRAL DISEASES COMPLICATING , THIRD TRIMESTER; U07.1 - COVID-19 Status: Acute Current Visit: Yes - Problem List Review Problem List Initiated/Reviewed/Updated: Yes - My Orders Last 24 Hours: My Active Orders 09/07/20 Breakfast Regular Diet [DIET] 09/07/20 07:08 Nalbuphine [Nubain] 10 mg IVPUSH Q2H PRN Ondansetron [Zofran] 4 mg IVPUSH Q4H PRN Sodium Chloride 0.9% [Saline Flush] 10 ml FLUSH ASDIRECTED PRN Resuscitation Status Routine 09/07/20 07:09 Patient Status [ADT] Routine Activity as Tolerated [RC] PFP Communication Order [RC] ASDIRECTED Non Stress Test [RC] PER UNIT ROUTINE Notify Provider [RC] PFP Notify Provider [RC] PRN Peripheral IV Care [RC] . DIRECTED Vital Signs [RC] PER UNIT ROUTINE Electronic Heart Tones Ext w TOCO [WOMSER] Routine Electronic Heart Tones Internal [WOMSER] Per Unit Routine Peripheral IV Insertion Adult [OM.PC] Routine 09/07/20 07:15 Lactated Ringers [Ringers, Lactated] 1,000 ml IV ASDIRECTED Oxytocin/Lactated Ringers [Pitocin in LR 10 Units/1,000 ML] 10 unit in 1,000 ml IV .CONTINUOUS 09/07/20 07:23 RAPID PLASMA REAGIN,RPR [CHEM] Routine 09/07/20 16:54 Patient Status Manage Transfer [TRANSFER] Routine - Assessment Assessment:: PPD#0 - Plan Plan:: Routine cares Breast feeding COVID positive, continue precautions Discharge home in 1-2 days
[2020-09-07] MEDS ORDERED: Witch Hazel Medicated Pads 40/Jar TOP PRN (17:00)
[2020-09-07] MEDS ORDERED: Benzocaine/Menthol 20%-0.5% Spray 56 GM Canister TOP PRN (17:00)
[2020-09-07] MEDS ORDERED: Docusate Sodium 100 MG Cap PO PRN (17:00)
[2020-09-07] MEDS ORDERED: Acetaminophen 325 MG Tab PO PRN (17:00)
[2020-09-08] MEDS: Ibuprofen 600 MG Tab PO PRN ×2 (01:34→07:32)
--- NOTE | 2020-09-08 08:21 | PCM.PNPP ---
- General Info Date of Service: 09/08/20 Functional Status: Reports: Pain Controlled, Tolerating Diet, Ambulating, Urinating - Review of Systems General: Reports: No Symptoms Pulmonary: Reports: No Symptoms Cardiovascular: Reports: No Symptoms Gastrointestinal: Reports: No Symptoms Genitourinary: Reports: No Symptoms Musculoskeletal: Reports: No Symptoms - Patient Data Vital Signs - Most Recent: Last Vital Signs Temp 36.7 C 09/08/20 07:33 Pulse 74 09/08/20 07:33 Resp 14 09/08/20 07:33 BP 121/68 09/08/20 07:33 Pulse Ox 98 09/08/20 07:33 Weight - Most Recent: 94.347 kg I&O - Last 24 Hours: Intake & Output 09/07/20 09/08/20 09/08/20 22:59 06:59 14:59 Intake Total 1000 Balance 1000 Lab Results - Last 24 Hours: Laboratory Results - last 24 hr 09/07/20 09/07/20 09/07/20 Range/Units 07:23 07:23 08:00 RPR Non-reactive (NONREACTIVE) SARS-CoV-2 RNA (EMILIA) Positive H (NEGATIVE) Blood Type O POSITIVE Gel Antibody Screen Negative Med Orders - Current: Current Medications Acetaminophen (Acetaminophen 325 Mg Tab) 650 mg PO Q4H PRN PRN Reason: mild pain or fever Benzocaine/Menthol (Benzocaine/Menthol 20%-0.5% [place] 56 Gm Canister) 0 gm TOP ASDIRECTED PRN PRN Reason: Perineal Comfort Measure Last Admin: 09/07/20 17:42 Dose: 1 canister Documented by: Docusate Sodium (Docusate Sodium 100 Mg Cap) 100 mg PO BID PRN PRN Reason: Constipation Ibuprofen (Ibuprofen 600 Mg Tab) 600 mg PO Q6H PRN PRN Reason: Mild pain or fever Last Admin: 09/08/20 07:32 Dose: 600 mg Documented by: Lisa Kline (Lisa Kline Medicated Pads 40/Jar) 1 pad TOP ASDIRECTED PRN PRN Reason: Perineal Comfort Measure Last Admin: 09/07/20 17:42 Dose: 1 container Documented by: Discontinued Medications Oxytocin/Lactated Ringer's (Pitocin In Lr 10 Units/1,000 Ml) 10 unit in 1,000 mls @ 500 mls/hr IV .CONTINUOUS NIA Last Admin: 09/07/20 14:24 Dose: 500 mls/hr Documented by: Lactated Ringer's (Ringers, Lactated) 1,000 mls @ 100 mls/hr IV ASDIRECTED NIA Nalbuphine HCl (Nalbuphine 10 Mg/1 Ml Vial) 10 mg IVPUSH Q2H PRN PRN Reason: Pain Ondansetron HCl (Ondansetron 4 Mg/2 Ml Sdv) 4 mg IVPUSH Q4H PRN PRN Reason: Nausea/Vomiting Sodium Chloride (Sodium Chloride 0.9% 10 Ml Syringe) 10 ml FLUSH ASDIRECTED PRN PRN Reason: Keep Vein Open - Infant Interaction Disposition, : in Room with Family Interaction: Holding Infant Feeding: Breastfed ; Nursed Well Support Person: - Recovery Exam Fundal Tone: Firm Fundal Level: At Umbilicus Fundal Placement: Midline Lochia Amount: Small Lochia Color: Rubra/Red Perineum Description: Intact, Minimal Bruising/Swelling Episiotomy/Laceration: None Bladder Status: Voiding Urinary Elimination: Voided - Exam General: Alert, Oriented, Cooperative - Problem List & Annotations (1) 42 weeks gestation of SNOMED Code(s): 31793549 Code(s): Z3A.42 - 42 WEEKS GESTATION OF Status: Acute Current Visit: Yes (2) Vaginal delivery SNOMED Code(s): 374051762 Code(s): O80 - ENCOUNTER FOR FULL-TERM UNCOMPLICATED DELIVERY Status: Acute Current Visit: No (3) COVID-19 affecting in third trimester SNOMED Code(s): 206076314, 577222435 Code(s): O98.513 - OTHER VIRAL DISEASES COMPLICATING , THIRD TRIMESTER; U07.1 - COVID-19 Status: Acute Current Visit: Yes - Problem List Review Problem List Initiated/Reviewed/Updated: Yes - My Orders Last 24 Hours: My Active Orders 09/07/20 Dinner Regular Diet [DIET] Acetaminophen [TylenoL] 650 mg PO Q4H PRN Benzocaine/Menthol [Dermoplast Pain Relief [place]] See Dose Instructions TOP ASDIRECTED PRN Docusate Sodium [Colace] 100 mg PO BID PRN Ibuprofen [Motrin] 600 mg PO Q6H PRN witch Lenny [Tucks] 1 pad TOP ASDIRECTED PRN Heat Therapy [OM.PC] PRN 09/07/20 17:00 Activity as Tolerated [RC] PER UNIT ROUTINE Vital Signs [RC] ,,, Assess Lochia [WOMSER] Per Unit Routine Assess Uterine Involution [WOMSER] Per Unit Routine Breast Pump [WOMSER] Per Unit Routine Ice Therapy [OM.PC] Per Unit Routine Perineal Care [OM.PC] Per Unit Routine Peripheral IV Discontinue [OM.PC] Routine Sitz Bath [OM.PC] Per Unit Routine 09/08/20 17:00 Heat Therapy [OM.PC] PRN - Assessment Assessment:: PPD#1 - Plan Plan:: Routine cares Breast feeding COVID positive, continue precautions Discharge home tomorrow
[2020-09-08 16:36] VITALS: BP 127/74; PULSE 79
--- NOTE | 2020-09-08 16:48 | PCM.DCSUM1 ---
Discharge Summary - Discharge Data Discharge Date: 09/08/20 Discharge Disposition: Home, Self-Care 01 Condition: Good - Referral to Home Health Primary Care Physician: Cristiane Deshpande MD - Discharge Diagnosis/Problem(s) (1) 42 weeks gestation of SNOMED Code(s): 15535514 ICD Code: Z3A.42 - 42 WEEKS GESTATION OF Status: Acute Current Visit: Yes (2) Vaginal delivery SNOMED Code(s): 645499205 ICD Code: O80 - ENCOUNTER FOR FULL-TERM UNCOMPLICATED DELIVERY Status: Acute Current Visit: No (3) COVID-19 affecting in third trimester SNOMED Code(s): 874021958, 679193083 ICD Code: O98.513 - OTHER VIRAL DISEASES COMPLICATING , THIRD TRIMESTER; U07.1 - COVID-19 Status: Acute Current Visit: Yes - Patient Summary/Data Complications: None Consults: None Recommended Follow-up Testing/Procedures: Follow up in 3 weeks for check Hospital Course: 25 y/o at 42 0/7 wks presented for IOL. Induction done with AROM only. Progressed well to complete dilation. Underwent an uncomplicated . See delivery note. did well and was discharged home on PPD#1 - Patient Instructions Diet: Regular Diet as Tolerated Activity: As Tolerated Activity, Other: Pelvic rest for 6 weeks Driving: May Drive Today Showering/Bathing: May Shower Showering/Bathing, Other: May Bathe Notify Provider of: Fever, Increased Pain, Swelling and Redness, Drainage, Nausea and/or Vomiting - Discharge Plan *PRESCRIPTION DRUG MONITORING PROGRAM REVIEWED*: No *COPY OF PRESCRIPTION DRUG MONITORING REPORT IN PATIENT [place]: No Home Medications: Home Meds Prenat 115/Iron Fum/Folic/Dss [ 19 Tablet] 1 each PO DAILY 09/12/19 [History] Ascorbic Acid [Vitamin C] 1,000 mg PO DAILY 09/07/20 [History] Calcium Carbonate/Vitamin D3 [Calcium Carbonate/Vitamin D 600 MG-200 Unit] 1 tab PO DAILY 09/07/20 [History] Ibuprofen [Motrin] 600 mg PO Q6H PRN tablet 09/08/20 [Rx] Referrals: Cristiane Deshpande MD [Primary Care Provider] - (3 weeeks for check ) - Discharge Summary/Plan Comment DC Time >30 min.: No - Patient Data Vitals - Most Recent: Last Vital Signs Temp 36.7 C 09/08/20 15:40 Pulse 79 09/08/20 15:40 Resp 14 09/08/20 15:40 BP 127/74 09/08/20 15:40 Pulse Ox 95 09/08/20 15:40 Weight - Most Recent: 94.347 kg Lab Results - Last 24 hrs: Laboratory Results - last 24 hr 09/07/20 Range/Units 07:23 RPR Non-reactive (NONREACTIVE) Med Orders - Current: Current Medications Acetaminophen (Acetaminophen 325 Mg Tab) 650 mg PO Q4H PRN PRN Reason: mild pain or fever Benzocaine/Menthol (Benzocaine/Menthol 20%-0.5% [place] 56 Gm Canister) 0 gm TOP ASDIRECTED PRN PRN Reason: Perineal Comfort Measure Last Admin: 09/07/20 17:42 Dose: 1 canister Documented by: Docusate Sodium (Docusate Sodium 100 Mg Cap) 100 mg PO BID PRN PRN Reason: Constipation Ibuprofen (Ibuprofen 600 Mg Tab) 600 mg PO Q6H PRN PRN Reason: Mild pain or fever Last Admin: 09/08/20 07:32 Dose: 600 mg Documented by: Lisa Kline (Witch Raisa Medicated Pads 40/Jar) 1 pad TOP ASDIRECTED PRN PRN Reason: Perineal Comfort Measure Last Admin: 09/07/20 17:42 Dose: 1 container Documented by: Discontinued Medications Oxytocin/Lactated Ringer's (Pitocin In Lr 10 Units/1,000 Ml) 10 unit in 1,000 mls @ 500 mls/hr IV .CONTINUOUS NIA Last Admin: 09/07/20 14:24 Dose: 500 mls/hr Documented by: Lactated Ringer's (Ringers, Lactated) 1,000 mls @ 100 mls/hr IV ASDIRECTED NIA Nalbuphine HCl (Nalbuphine 10 Mg/1 Ml Vial) 10 mg IVPUSH Q2H PRN PRN Reason: Pain Ondansetron HCl (Ondansetron 4 Mg/2 Ml Sdv) 4 mg IVPUSH Q4H PRN PRN Reason: Nausea/Vomiting Sodium Chloride (Sodium Chloride 0.9% 10 Ml Syringe) 10 ml FLUSH ASDIRECTED PRN PRN Reason: Keep Vein Open
== END 2020-09-08 18:00 | disposition home or self-care (01) | DRG 560 ==
LOC: JD.OB 06:55 → OBSVTOIN 14:21 → JD.OB 14:21 → JD.MS 14:22 → JD.OB 18:30
PROVIDERS: ADMIT Obstetrics & Gynecology; ATTEND Obstetrics & Gynecology
PROC: 10E0XZZ Delivery of Products of Conception, External Approach (ICD-10-PCS; principal; 2020-09-07)
PROC: 10907ZC Drainage of Amniotic Fluid, Therapeutic from Products of Conception, Via Natural or Artificial Opening (ICD-10-PCS; 2020-09-07)
DX: O48.0 Post-term pregnancy (principal); O98.52 Other viral diseases complicating childbirth; U07.1 COVID-19; O69.1XX0 Labor and delivery complicated by cord around neck, with compression, not applicable or unspecified; O77.0 Labor and delivery complicated by meconium in amniotic fluid; O70.0 First degree perineal laceration during delivery; Z3A.42 42 weeks gestation of pregnancy; Z37.0 Single live birth; Z88.5 Allergy status to narcotic agent
CPT/HCPCS: 36415; 59025; 59409; 85027; 86592; 86850; 86900; 86901; A9270-GY; J2590; U0002

== ENCOUNTER 2022-06-12 08:44 | Inpatient (IN) | payer BC ==
[~2022-06-12 08:44] MED LIST changes: +Bupivacaine 0.25% 10 ML SDV ONE; -Lidocaine 1.5% with EPINEPHrine 1:200,000 5 ML Amp ONE
[2022-06-12] MEDS ORDERED: Acetaminophen 325 MG Tab PO PRN ×2 (09:01→23:13)
[2022-06-12] MEDS ORDERED: Sodium Chloride 0.9% 10 ML Syringe FLUSH PRN (09:01)
[2022-06-12] MEDS ORDERED: Ondansetron 4 MG/2 ML SDV IVPUSH PRN (09:01)
[2022-06-12] MEDS ORDERED: Nalbuphine 10 MG/0.5 ML Syringe IVPUSH PRN (09:01)
[2022-06-12] MEDS ORDERED: Oxytocin/Lactated Ringers 10 UNIT/1,000 ML BAG IV SCH ×2 (09:15→21:15)
[2022-06-12] MEDS: Lactated Ringers 1,000 ML IV SCH ×3 (12:02→20:09)
[2022-06-12] MEDS ORDERED: Bupivacaine/fentaNYL/NS 100 ML Bag EPIDUR PRN (12:44)
[2022-06-12] MEDS ORDERED: diphenhydrAMINE 50 MG/ML SDV IVPUSH PRN (12:44)
[2022-06-12] MEDS ORDERED: fentaNYL 100 MCG/2 ML SDV EPIDUR PRN (12:44)
[2022-06-12] MEDS ORDERED: ePHEDrine 50 MG/ML SDV IVPUSH PRN (12:44)
[2022-06-12] MEDS ORDERED: Sodium Chloride 0.9% 10 ML Syringe FLUSH SCH (21:00)
[2022-06-12] MEDS ORDERED: Witch Hazel Medicated Pads 40/Jar TOP PRN (23:13)
[2022-06-12] MEDS ORDERED: Docusate Sodium 100 MG Cap PO PRN (23:13)
[2022-06-12] MEDS ORDERED: Benzocaine/Menthol 20%-0.5% Spray 78 GM Cannister TOP PRN (23:13)
[2022-06-13] MEDS: Ibuprofen 600 MG Tab PO PRN ×2 (09:01→21:39)
[2022-06-14] MEDS: Ibuprofen 600 MG Tab PO PRN (06:20)
[2022-06-14 14:22] VITALS: BP 118/72; PULSE 72
== END 2022-06-14 13:35 | disposition home or self-care (01) | DRG 560 ==
LOC: JD.OBCHECK 08:44 → JD.OB 08:49 → JD.OBCHECK 09:17 → OBSVTOIN 22:02 → JD.OB 22:03
PROVIDERS: ADMIT Obstetrics & Gynecology; ATTEND Obstetrics & Gynecology
PROC: 10E0XZZ Delivery of Products of Conception, External Approach (ICD-10-PCS; principal; 2022-06-12)
PROC: 10907ZC Drainage of Amniotic Fluid, Therapeutic from Products of Conception, Via Natural or Artificial Opening (ICD-10-PCS; 2022-06-12)
PROC: 3E033VJ Introduction of Other Hormone into Peripheral Vein, Percutaneous Approach (ICD-10-PCS; 2022-06-12)
PROC: 3E0S3BZ Introduction of Anesthetic Agent into Epidural Space, Percutaneous Approach (ICD-10-PCS; 2022-06-12)
PROC: 00HU33Z Insertion of Infusion Device into Spinal Canal, Percutaneous Approach (ICD-10-PCS; 2022-06-12)
DX: O41.03X0 Oligohydramnios, third trimester, not applicable or unspecified (principal); O48.0 Post-term pregnancy; Z3A.41 41 weeks gestation of pregnancy; Z37.0 Single live birth; Z88.5 Allergy status to narcotic agent; Z79.899 Other long term (current) drug therapy; Z86.19 Personal history of other infectious and parasitic diseases; Z98.890 Other specified postprocedural states; Z86.16 Personal history of COVID-19
CPT/HCPCS: 36415; 51702; 59025; 59409; 85027; 86592; 86850; 86900; 86901; A9270-GY; J2300; J3010; J3490; J7120

== ENCOUNTER 2023-09-23 18:48 | Inpatient (IN) | payer BC ==
[2023-09-23] MEDS ORDERED: Lidocaine 1% 50 ML MDV INJECT PRN (19:00)
[2023-09-23] MEDS ORDERED: Nalbuphine HCl 10 MG/ 1ML Amp IVPUSH PRN (19:00)
[2023-09-23] MEDS ORDERED: Ondansetron 4 MG/2 ML SDV IVPUSH PRN (19:00)
[2023-09-23] MEDS ORDERED: Sodium Chloride 0.9% 10 ML Syringe FLUSH PRN (19:00)
[2023-09-23] MEDS ORDERED: Oxytocin/Lactated Ringers 30 UNIT/500 ML BAG IV SCH (19:00)
[2023-09-23] MEDS ORDERED: Nalbuphine 10 MG/ML Syringe IVPUSH PRN (19:15)
[2023-09-23 19:34] LABS: BASOPHILS PERCENT AUTO 0.3 % (0.0-1.0); EOSINOPHILS PERCENT AUTO 0.2 % (0.0-6.0); HEMATOCRIT 37.6 % (37.0-47.0); HEMOGLOBIN 12.4 gm/dl (12.0-16.0); IMMATURE GRAN ABSOLUTE AUTO 0.06 K/mm3 (0.00-0.05); IMMATURE GRAN PERCENT AUTO 0.6 % (0.0-0.4); LYMPHOCYTES ABSOLUTE AUTO 1.6 K/mm3 (1.0-4.8); LYMPHOCYTES PERCENT AUTO 14.7 % (24.0-44.0); MEAN CORPUSCULAR VOLUME 81.9 fl (83.0-99.0); MEAN PLATELET VOLUME 11.3 fl (9.4-12.3); MONOCYTES ABSOLUTE AUTO 0.6 K/mm3 (0.0-0.8); MONOCYTES PERCENT AUTO 5.7 % (0.0-8.0); NEUTROPHILS ABSOLUTE AUTO 8.3 K/mm3 (1.8-7.7); NEUTROPHILS PERCENT AUTO 78.5 % (41.0-71.0); PLATELET COUNT,PLT 220 K/mm3 (150-400); RED BLOOD CELL COUNT 4.59 M/mm3 (4.10-5.30); WHITE BLOOD CELL COUNT,WBC 10.51 K/mm3 (3.9-11.3)
[2023-09-24] MEDS: Lactated Ringers 1,000 ML IV SCH (02:32)
[2023-09-24] MEDS ORDERED: diphenhydrAMINE 50 MG/ML SDV IVPUSH PRN (02:52)
[2023-09-24] MEDS ORDERED: ePHEDrine 50 MG/ML SDV IVPUSH PRN (02:52)
[2023-09-24] MEDS: fentaNYL 100 MCG/2 ML SDV EPIDUR PRN (03:00)
[2023-09-24] MEDS: Bupivacaine/fentaNYL/NS 100 ML Bag EPIDUR PRN (03:02)
[2023-09-24] MEDS: Oxytocin/Lactated Ringers 30 UNIT/500 ML BAG IV SCH (04:40)
[2023-09-24] MEDS ORDERED: Docusate Sodium 100 MG Cap PO PRN (06:27)
[2023-09-24] MEDS: Benzocaine/Menthol 20%-0.5% Spray 78 GM Cannister TOP PRN (07:01)
[2023-09-24] MEDS: Witch Hazel Medicated Pads 40/Jar TOP PRN (07:02)
[2023-09-24] MEDS: Sodium Chloride 0.9% 10 ML Syringe FLUSH SCH (07:34)
[2023-09-24] MEDS: Ibuprofen 600 MG Tab PO PRN (16:29)
[2023-09-24] MEDS: Acetaminophen 325 MG Tab PO PRN (20:13)
[2023-09-25 14:32] VITALS: BP 120/76; PULSE 57
== END 2023-09-25 13:45 | disposition home or self-care (01) | DRG 560 ==
LOC: JD.OBCHECK 18:48 → JD.OB 18:53 → OBSVTOIN 09-24 04:51 → JD.OB 09-24 04:52
PROVIDERS: ADMIT Obstetrics & Gynecology; ATTEND Obstetrics & Gynecology
PROC: 10E0XZZ Delivery of Products of Conception, External Approach (ICD-10-PCS; principal; 2023-09-24)
PROC: 3E0R3BZ Introduction of Anesthetic Agent into Spinal Canal, Percutaneous Approach (ICD-10-PCS; 2023-09-24)
PROC: 00HU33Z Insertion of Infusion Device into Spinal Canal, Percutaneous Approach (ICD-10-PCS; 2023-09-24)
DX: O42.02 Full-term premature rupture of membranes, onset of labor within 24 hours of rupture (principal); O48.0 Post-term pregnancy; Z3A.42 42 weeks gestation of pregnancy; Z37.0 Single live birth; Z88.5 Allergy status to narcotic agent; Z86.16 Personal history of COVID-19
CPT/HCPCS: 36415; 51701; 59025; 59409; 85025; 86592; 86850; 86900; 86901; A9270-GY; J3010; J3490; J7120; J7999